=== PATIENT | male | born 1950 | race Caucasian/White ===

== ENCOUNTER 2018-04-12 15:48 | Emergency (ER) | payer MEDICAID ==
[~2018-04-12] VITALS: Ht 160 cm; Wt 57.3 kg
[2018-04-12 16:00] VITALS: BP 211/97
--- NOTE | 2018-04-12 16:10 | NUR ---
PT AMBULATES TO BED 6
--- NOTE | 2018-04-12 16:28 | NUR ---
pt c/o of high blood sugar at home. pt reports accucheck of 541 2 hrs ago; pt states he self administered 15 units of regular insulin. accucheck at time of triage 71. pt denies pain. VSS; PATIENT POSITIONED FOR COMFORT; HOB ELEVATED; BEDRAILS UP X1; BED DOWN. ER MD MADE AWARE OF PT STATUS.
[2018-04-12] MEDS ORDERED: hydrALAZINE 20 MG/ML VIAL IVP ONE (17:25)
[2018-04-12] MEDS ORDERED: ENALAPRILAT 2.5 MG/2 ML VIAL IVP ONE (17:25)
[2018-04-12 17:49] LABS: APPEARANCE,URINE CLEAR (CLEAR); BILIRUBIN,URINE NEGATIVE (NEGATIVE); BLOOD, URINE TRACE-L (NEGATIVE); COLOR,URINE YELLOW (YELLOW); LEUKOCYTE ESTERASE ,URINE NEGATIVE (NEGATIVE); NITRITE, URINE NEGATIVE (NEGATIVE); UGLUCOSE NEGATIVE (NEGATIVE)
[2018-04-12 17:56] LABS: RBC,URINE 0-5 (RARE) /HPF (0-5); WBC,URINE 0-5 (RARE) /HPF (0-5)
[2018-04-12 17:59] LABS: BASOPHILS % (AUTO) 0.4 % (0.0-2.0); EOSINOPHILS % (AUTO) 0.2 % (0.0-4.0); HEMATOCRIT 39.4 % (36-52); HEMOGLOBIN 13.2 g/dL (12.0-18.0); LYMPHOCYTES # (AUTO) 1.1 K/uL (2.0-11.5); LYMPHOCYTES % (AUTO) 13.8 % (20.5-51.1); MEAN CORPUSCULAR HEMOGLOBIN 28 pg (27-31); MEAN CORPUSCULAR HGB CONC 33 g/dL (33-37); MEAN CORPUSCULAR VOLUME 84.8 fL (80-94); MONOCYTES # (AUTO) 0.4 K/uL (0.8-1.0); MONOCYTES % (AUTO) 5.1 % (1.7-9.3); NEUTROPHILS # (AUTO) 6.1 K/uL (1.8-7.7); NEUTROPHILS % (AUTO) 80.5 % (42.2-75.2); PLATELET COUNT (AUTO) 178 K/uL (140-450); RED BLOOD CELL COUNT(AUTO) 4.65 MIL/uL (4.20-6.10); RED CELL DISTRIBUTION WIDTH 13.3 % (11.6-13.7); WHITE BLOOD COUNT (AUTO) 7.6 K/uL (4.8-10.8)
[2018-04-12 18:48] LABS: ANION GAP 12.7 (8-16); CARBON DIOXIDE 29.1 mmol/L (21-32); CREATININE 0.9 mg/dL (0.7-1.3); POTASSIUM 3.8 mmol/L (3.5-5.1)
[2018-04-12 18:51] LABS: ALBUMIN 4.1 g/dL (3.4-5.0); TOTAL BILIRUBIN 0.4 mg/dL (0.0-1.0)
[2018-04-12 18:52] VITALS: BP 158/57
--- NOTE | 2018-04-12 18:53 | NUR ---
Patient discharged with v/s stable. Written and verbal after care instructions given and explained. Patient verbalized understanding. Ambulatory with steady gait. All questions addressed prior to discharge. Advised to follow up with PMD.
== END 2018-04-12 18:53 | disposition home or self-care (01) ==
LOC: MED 15:48
DX: E11.649 Type 2 diabetes mellitus with hypoglycemia without coma (principal); I10 Essential (primary) hypertension
CPT/HCPCS: 36415; 80053; 81001; 85025; 96374; 96375; 99283; J0360; J3490

== ENCOUNTER 2019-04-11 19:04 | Emergency (ER) | payer SELFPAY ==
[~2019-04-11] VITALS: Ht 182.9 cm; Wt 61.2 kg
[2019-04-11 19:14] VITALS: BP 195/76
--- NOTE | 2019-04-11 19:21 | NUR ---
PT AMBULATED TO BED #9
--- NOTE | 2019-04-11 19:44 | NUR ---
68 YEAR OLD PATIENT ACCOMPANIED BY DAUGHTER COMPLAINS OF SHARP LOWER BACK PAIN 8/10 X2DAYS. DAUGHTER STATES FATHER WOULD LIFT HEAVY BOXES AT WORK FREQUENTLY. DENIES DIRECT INJURY OR TRAUMA. SITE WITHOUT INFLAMMATION OR REDNESS. DENIES N/V/D. BP 195/76, DENIES HEADACHE OR BLURRED VISION. PATIENT ALERT AND ORIENTED, BED IN LOWEST POSITION, LOCKED, BED RAIL UPX1. HX - DM2, HTN, BPH, HIGH CHOLESTEROL RX - LISINOPRIL, METFORMIN, SIMVASTATIN, FLOMAX
[2019-04-11] MEDS ORDERED: KETOROLAC 60 MG/2 ML VIAL IM ONE (19:50)
--- NOTE | 2019-04-11 20:06 | NUR ---
PATIENT GIVEN IM TORADOL ORDERED. PATIENT TOLERATED WELL. WILL CHECK BACK.
[2019-04-11 20:59] LABS: APPEARANCE,URINE CLEAR (CLEAR); BILIRUBIN,URINE NEGATIVE (NEGATIVE); BLOOD, URINE 1+ (NEGATIVE); COLOR,URINE YELLOW (YELLOW); LEUKOCYTE ESTERASE ,URINE NEGATIVE (NEGATIVE); NITRITE, URINE NEGATIVE (NEGATIVE); UGLUCOSE NEGATIVE (NEGATIVE)
[2019-04-11 21:01] LABS: WBC,URINE 0-5 /HPF (0-5)
[2019-04-11 21:02] LABS: HYALINE CASTS, URINE 0-10 /LPF (None Seen); YEAST,URINE Few /HPF (None Seen)
--- NOTE | 2019-04-11 21:22 | NUR ---
PT SLEEPING IN BED, AROUSABLE TO NAME, RR EVEN AND UNLABORED. REPORTS 5/10 MID LOWER BACK PAIN, REPORTS IMPROVEMENT IN PAIN RELIEF AFTER TORADOL IM. DR TORRES MADE AWARE. ALL NEEDS MET.
[2019-04-11] MEDS ORDERED: hydrALAZINE 20 MG/ML VIAL IVP ONE (21:25)
[2019-04-11 21:50] LABS: BASOPHILS % (AUTO) 0.3 % (0.0-2.0); EOSINOPHILS # (AUTO) 0.1 K/uL (0-0.4); EOSINOPHILS % (AUTO) 1.7 % (0.0-4.0); HEMATOCRIT 36.2 % (36-52); HEMOGLOBIN 12.1 g/dL (12.0-18.0); LYMPHOCYTES # (AUTO) 1.3 K/uL (2.0-11.5); LYMPHOCYTES % (AUTO) 21.1 % (20.5-51.1); MEAN CORPUSCULAR HEMOGLOBIN 28 pg (27-31); MEAN CORPUSCULAR HGB CONC 33 g/dL (33-37); MONOCYTES # (AUTO) 0.5 K/uL (0.8-1.0); MONOCYTES % (AUTO) 8.3 % (1.7-9.3); NEUTROPHILS # (AUTO) 4.1 K/uL (1.8-7.7); NEUTROPHILS % (AUTO) 68.6 % (42.2-75.2); PLATELET COUNT (AUTO) 133 K/uL (140-450); RED BLOOD CELL COUNT(AUTO) 4.25 MIL/uL (4.20-6.10); RED CELL DISTRIBUTION WIDTH 13.3 % (11.6-13.7)
--- NOTE | 2019-04-11 21:50 | NUR ---
EKG PERFORMED AT BEDSIDE
[2019-04-11 22:01] LABS: ANION GAP 14.1 (8-16); CARBON DIOXIDE 26.9 mmol/L (21-32); CREATININE 0.9 mg/dL (0.7-1.3)
[2019-04-11 22:05] LABS: CHOL/HDL RATIO 3.2 (1-4.5)
[2019-04-11 22:07] LABS: ALBUMIN 3.6 g/dL (3.4-5.0); TOTAL BILIRUBIN 0.3 mg/dL (0.0-1.0)
[2019-04-11 23:25] VITALS: BP 159/67
[2019-04-11] MEDS ORDERED: METF850T PO (23:25)
[2019-04-11] MEDS ORDERED: LISI-420 PO (23:25)
--- NOTE | 2019-04-11 23:25 | NUR ---
Patient discharged with v/s stable. Written and verbal after care instructions given and explained BY DOCTOR BRIAN. Patient alert, oriented and verbalized understanding of instructions. Ambulatory with steady gait. All questions addressed prior to discharge. ID band removed. Patient advised to follow up with PMD. Rx of NAPROSYN 500MG given. Patient educated on indication of medication including possible reaction and side effects. Opportunity to ask questions provided and answered.
== END 2019-04-11 23:25 | disposition home or self-care (01) ==
LOC: MED 19:04
DX: M54.5 Low back pain (principal); E11.9 Type 2 diabetes mellitus without complications; I10 Essential (primary) hypertension; N40.0 Benign prostatic hyperplasia without lower urinary tract symptoms; Z79.84 Long term (current) use of oral hypoglycemic drugs; Z79.899 Other long term (current) drug therapy
CPT/HCPCS: 36415; 71045; 71275; 74174; 80053; 80061; 81001; 82550; 82553; 82948; 83880; 84484; 85025; 96372; 96374; 99284; J0360; J1885; Q0092; Q9967

== ENCOUNTER 2019-08-11 02:50 | Inpatient (IN) | payer MEDICAID ==
[~2019-08-11] VITALS: Ht 167.6 cm; Wt 58.5 kg
[~2019-08-11 02:50] MED LIST: LISI-420 PO; METF850T PO
[2019-08-11 03:00] VITALS: BP 181/70
--- NOTE | 2019-08-11 03:03 | NUR ---
PT TAKEN TO BED 6
--- NOTE | 2019-08-11 03:10 | NUR ---
68 YEAR OLD MALE BROUGHT IN BY FAMILY AND STATED THAT PATIENT IN THE MORNING PATIENT WOKE UP SCREAMING AND WAS ALTERED. PATIENT ALERT AND AWAKE, BREATHING EVEN AND UNLABORED, SKIN WARM AND DRY. GCS 15. PATIENT WOULD REPEAT STATEMENTS OVER INSTEAD OF ASKING QUESTIONS. PATIENT STATES HE HAS DIZZINESS. BLOOD SUGAR 35. ERMD MADE AWARE OF PT STATUS, PT PLACED ON MONITOR. PMH - HTN, DM2 ALLERGIES - NKA
[2019-08-11] MEDS ORDERED: DEXTROSE 10% 1,000 ML IV SCH (03:15)
--- NOTE | 2019-08-11 03:15 | NUR ---
PATIENT GIVEN CRACKERS AND JUICE
--- NOTE | 2019-08-11 03:22 | NUR ---
Dr. Hansen examining patient.
[2019-08-11 03:36] LABS: BASOPHILS % (AUTO) 0.4 % (0.0-2.0); EOSINOPHILS % (AUTO) 0.7 % (0.0-4.0); HEMATOCRIT 36.8 % (36-52); HEMOGLOBIN 12.1 g/dL (12.0-18.0); LYMPHOCYTES # (AUTO) 0.8 K/uL (2.0-11.5); LYMPHOCYTES % (AUTO) 15.1 % (20.5-51.1); MEAN CORPUSCULAR HEMOGLOBIN 28 pg (27-31); MEAN CORPUSCULAR HGB CONC 33 g/dL (33-37); MEAN CORPUSCULAR VOLUME 85.8 fL (80-94); MONOCYTES # (AUTO) 0.3 K/uL (0.8-1.0); MONOCYTES % (AUTO) 5.9 % (1.7-9.3); NEUTROPHILS % (AUTO) 77.9 % (42.2-75.2); PLATELET COUNT (AUTO) 129 K/uL (140-450); RED BLOOD CELL COUNT(AUTO) 4.29 MIL/uL (4.20-6.10); RED CELL DISTRIBUTION WIDTH 13.8 % (11.6-13.7); WHITE BLOOD COUNT (AUTO) 5.1 K/uL (4.8-10.8)
[2019-08-11 03:50] LABS: ALBUMIN 3.8 g/dL (3.4-5.0); ANION GAP 11.5 (8-16); CARBON DIOXIDE 30.4 mmol/L (21-32); CREATININE 0.8 mg/dL (0.6-1.3); POTASSIUM 3.9 mmol/L (3.5-5.1); TOTAL BILIRUBIN 0.2 mg/dL (0.0-1.0)
[2019-08-11] MEDS ORDERED: CEPH250C16 PO (04:24)
[2019-08-11] MEDS ORDERED: DOCU100C16 PO (04:29)
[2019-08-11] MEDS ORDERED: AMLO5TAB PO (04:29)
[2019-08-11] MEDS ORDERED: TAMS0.4C96 PO (04:29)
[2019-08-11] MEDS ORDERED: SIMV20TA1 PO (04:29)
[2019-08-11] MEDS ORDERED: ACET-2619 PO (04:29)
[2019-08-11] MEDS ORDERED: HYDR100T79 PO (04:29)
[2019-08-11] MEDS ORDERED: IBUP200C97 PO (04:29)
--- NOTE | 2019-08-11 04:30 | NUR ---
PATIENT ALERT AND AWAKE, BREATHING EVEN AND UNLABORED
[2019-08-11] MEDS ORDERED: ONDANSETRON 4 MG/2 ML VIAL IVP PRN (04:35)
[2019-08-11] MEDS ORDERED: ACETAMINOPHEN 325 MG TAB PO PRN (04:35)
--- NOTE | 2019-08-11 04:40 | NUR ---
Dr. Guthrie examining patient.
--- NOTE | 2019-08-11 05:20 | NUR ---
FLOOR STATES THEY ARE UNABLE TO ACCEPT PATIENT FOR 20MINS THEY NEED MORE TIME TO PREPARE ROOM
--- NOTE | 2019-08-11 05:37 | NUR ---
Patient's Plan of Care was discussed and reviewed with CONCRETE FLOATER: RADHA GILMORE.
[2019-08-11 05:44] LABS: PROTHROMBIN TIME 10.7 secs (10.8-13.4)
--- NOTE | 2019-08-11 05:45 | NUR ---
REFUSE DRIVER CAME AND STATES THAT SHE WANTED TO TAKE PATIENT FOR HEAD CT SCAN BEFORE TRANSFER TO [facility], REFUSE DRIVER WAS NOTIFIED SHE COULD TAKE PATIENT, REFUSE DRIVER LEFT AND DID NOT COME BACK
--- NOTE | 2019-08-11 05:50 | NUR ---
Patient will be admitted to care of DR MOORE. Admited to TELE. Will go to room 121B. Belongings list completed. Report to ROBEL BAPTISTE.
[2019-08-11 05:57] LABS: CHOL/HDL RATIO 2.7 (1-4.5); FREE T4 (FREE THYROXINE) 0.93 ng/dL (0.76-1.46); MAGNESIUM 1.6 mg/dL (1.8-2.4); PHOSPHORUS 2.9 mg/dL (2.5-4.9); THYROID STIMULATING HORMONE 0.45 uIU/mL (0.34-3.74)
--- NOTE | 2019-08-11 06:00 | NUR ---
PT WAS BROUGHT UP TO FLOOR VIA W/C TO ROOM 121B AND HE AMBULATED TO BED B. REPORT GIVEN BY PERRI, PT IS STABLE CONDITION. HE IS AOX3 , LAST FINGERSTICK IS 116.
--- NOTE | 2019-08-11 06:30 | NUR ---
VITAL SIGNS TAKEN T 98.5 P 61 R 20 B/P 176/71, B/P RETAKEN AND IT WAS 181/78 02 99% ON ROOM AIR. NOTIFIED MD REYNOLDS AND MD SHAW REGARDING PT HTN, MD SHAW APPROVED B/P MEDS TO GIVEN EARLY AND RODOLFO TO FOLLOW UP WITH PRN.
[2019-08-11] MEDS ORDERED: LISINOPRIL 20 MG TAB ONE (06:45)
[2019-08-11] MEDS: LISINOPRIL 20 MG TAB PO SCH ×2 (06:52→20:05)
[2019-08-11 07:00] VITALS: BP 176/71
[2019-08-11] MEDS: NACL 0.9% 1,000 ML IV SCH (07:05)
[2019-08-11] MEDS ORDERED: hydrALAZINE 20 MG/ML VIAL IVP PRN (07:05)
--- NOTE | 2019-08-11 07:20 | NUR ---
RECEIVED PT. FROM NUCLEAR REACTOR TECHNICIAN NURSEROBEL. PT. IS AWAKE AND ALERT. AAOX4. IV ON THE RIGHT FOREARM 20G WITH NS RUNNING AT 10ML/HR. PT. IS AMBULATORY. PT. IS ON ROOM AIR WITH O2 STAT AT 99%. NO SIGNS OF DISTRESS NOTED AND PT. VERBALIZES NO PAIN. FALL PRECAUTIONS INITIATED. CALL LIGHT WITHIN REACH. WILL CONTINUE TO MONITOR.
[2019-08-11 08:00] VITALS: BP 176/71
--- NOTE | 2019-08-11 08:47 | NUR ---
PATIENT HAS BEEN SCREENED AND CATEGORIZED MODERATE NUTRITION RISK. PATIENT WILL BE SEEN WITHIN 3-5 DAYS OF ADMISSION. 08/13/19 08/15/[address]
[2019-08-11] MEDS ORDERED: INSU100S22 SUBQ (08:48)
[2019-08-11] MEDS ORDERED: DEXTROSE 50% 50 ML SYR IVP PRN (09:00)
[2019-08-11] MEDS ORDERED: amLODIPine 5 MG TAB PO SCH (09:00)
[2019-08-11] MEDS ORDERED: NON-FORMULARY ITEM (Hydralazine HCl (Hydralazine Hydrochloride) 25 MG) PO SCH (09:00)
[2019-08-11] MEDS ORDERED: INSULIN LISPRO SLIDING SCALE 100 UNITS/ML VIAL SUBQ PRN (09:00)
--- NOTE | 2019-08-11 10:33 | NUR ---
MORNING MEDICATIONS GIVEN. BP 159/66 & HR 60. NO DISTRESS NOTED. WILL CONTINUE TO MONITOR.
[2019-08-11] MEDS: hydrALAZINE 25 MG TAB PO SCH ×3 (10:36→17:26)
[2019-08-11] MEDS: DOCUSATE SODIUM 100 MG GELCAP PO SCH ×2 (10:36→20:05)
--- NOTE | 2019-08-11 11:30 | NUR ---
BLOOD GLUCOSE TAKEN WITH A VALUE OF 123. NO INSULIN COVERAGE NEEDED. WILL CONTINUE TO MONITOR.
[2019-08-11] MEDS: BLOOD GLUCOSE MONITORING 1 DEV DEV FS SCH ×3 (11:47→20:07)
--- NOTE | 2019-08-11 13:28 | NUR ---
DC PLANNIN YRS OLD MALE PATIENT WAS ADMITTED FROM HOME WITH A DX OF HYPOGLYCEMIA BS 38 . PT HAS A HX OF DM AND HTN . ADMINISTERED D50 IVP GIVEN, BS . CT HEAD SHOWED SMALL RT INFERIOR FRONTAL PROBABLE SUBDURAL HEMATOMA AND CAROTID US AND CXRAY (-) CONSULTED WITH NEUROLOGIST DR JOE EVALUATED PT ORDERED MRI OF THE BRAIN. CM TO FOLLOW Addendum: 08/11/19 at 1512 by Beth Gordon CM DC PLANNING CALLED [facility] [phone] MRI DPT ,SPOKE WITH ALIREZA AND FAXED THE MRI REQUEST. AIDEE LAY RECEIVED ALL THE PAPERWORK AND SCHEDULE IT FOR TOMORROW 08/12/19 AT 8:30 AM ARRANGED TRANSPORT WITH [facility] SPOKE WITH LYDIA, VOUCHER SIGNED BY CAMACHO DUBOIS , VESSEL MANAGER TIME 7:30 AM. IF MRI IS DONE WITH IN 30 MIN [facility] WILL WAIT 30 MIN . AND RETURN PT BACK TO [facility]. NOTIFIED ISAÍAS BAPTISTE. Addendum: 08/12/[address] RECEIVED AN ORDER TO DC HOME WITH [facility] FOR PT AND NURSING SAFETY GERRI. ATTEMPTED TO MEET WITH THE PATIENT AT THE BEDSIDE, PATIENT IS OUT OF THE UNIT FOR AN MRI. WILL CONTACT PATIENT'S SISTER SHAVON SHEETS AT [phone]. SPOKE TO CARMENZA (PATIENT'S NIECE) SHE STATED HER MOTHER DOES NOT SPEAK ARABIC AND SHE CAN TRANSLATE. DISCUSSED DC PLAN AND IS IN AGREEMENT. CONTACTED [facility] AT [phone], ABLE TO SPEAK TO LAURI. SHE STATED TO GO AHEAD AND FAX REFERRAL TO [phone]. REFERRAL SENT. LAURI MADE AWARE THAT THE PATIENT'S INSURANCE IS MEDICAL RESTRICTED. SHE STATED THEY WILL REVIEW IT AND IF THEY ARE ABLE TO ACCEPT, WILL GIVE ME A CALL BACK. Addendum: 08/12/[address] CM RECEIVED AN ORDER FOR OUT PATIENT NEURO SURGERY APPOINTMENT. CONTACTED [facility] AT [phone], ABLE TO SPEAK TO ALLA (STEEL DETAILER) TO INQUIRE ABOUT OUT PATIENT NEURO SURGERY APPOINTMENT CLINIC'S PHONE NUMBER. SHE STATED TO CALL [phone], ABLE TO SPEAK TO STANLEY. SHE STATED TO GO AHEAD AND FAX REFERRAL TO [phone] AND ATTENTION IT TO NEURO SURGERY DEPARTMENT. SHE ALSO PROVIDED ME WITH THE REFERRAL (NEURO SURGERY DEPT) DEPT'S PHONE NUMBER [phone]. CLINICALS AND ORDER FAXED TO THE PROVIDED NUMBER. WILL FOLLOW UP. Addendum: 08/12/[address] PER LAURI VALDEZ OF [facility], THEY ARE NOT ABLE TO ACCEPT THE PATIENT DUE TO MEDICAL RESTRICTED. DR. REYNOLDS MADE AWARE. Addendum: 08/12/[address] CONTACTED [facility] AT [phone], ABLE TO SPEAK TO VERO. SHE STATED SHE IS NOT ABLE TO TELL ME IF THEY HAVE RECEIVED THE REFERRAL SINCE THEY ARE WORKING ON AUG 02 REFERRALS THEY RECEIVED. SHE ALSO STATED TO CALL BACK IN 2-3 DAYS TO FOLLOW, MAY AT THAT TIME THEY ARE CAUGHT UP ALREADY. CONTA[facility]ED [facility] AT [phone], ABLE TO SPEAK TO OPAL. SHE PROVIDED ME THE FAX NUMBER [phone] TO SEND REFERRAL. REFERRAL SENT TO THE PROVIDED NUMBER.
--- NOTE | 2019-08-11 13:30 | NUR ---
MRI OF THE HEAD SCREENING QUESTIONNAIRE DONE WITH SR. [employer] MOBILE MANAGER [place], [place] [id number]. PT. VERBALIZES UNDERSTANDING AND ANSWERED SCREENING QUESTIONS WITHOUT CONFUSION. WILL CONTINUE TO MONITOR.
--- NOTE | 2019-08-11 14:30 | NUR ---
RECEIVED MRI PROCEDURE INFORMATION ABOUT TRANSFER TO [facility] FROM [facility], EMILY. WILL ENDORSE TO NEXT SHIFT NURSE.
--- NOTE | 2019-08-11 16:30 | NUR ---
REASSESSED V/S. BP DECREASED TO 140/85 AND HR 74. WILL CONTINUE TO MONITOR.
[2019-08-11] MEDS ORDERED: metFORMIN 850 MG TAB PO SCH (17:00)
--- NOTE | 2019-08-11 17:00 | NUR ---
BLOOD SUGAR DONE WITH VALUE OF 119. NO INSULIN COVERAGE NEEDED. WILL CONTINUE TO MONITOR.
--- NOTE | 2019-08-11 17:10 | NUR ---
AFTERNOON MEDICATIONS GIVEN. BP 187/96 HR 61. SCHEDULED HYDRALAZINE PO GIVEN. WILL REASSESS BP AFTER 1 HOUR.
--- NOTE | 2019-08-11 19:00 | NUR ---
ENDORSED PT. TO OPERATOR NURSE FOR CONTINUITY OF CARE.
--- NOTE | 2019-08-11 19:30 | NUR ---
RECEIVED BEDSIDE REPORT FROM DAY RN. PT IS AAOX4 IS GUINEAN SPEAKING ONLY. RESPIRATIONS ARE EQUAL AND UNLABORED ON ROOM AIR. LUNG SOUNDS ARE CLEAR. SKIN IS INTACT. PT IS AMBULATORY PER RN. IV ON R HAND 20G IVF PER ORDERS. C/C ALOC DX HYPOGLYCEMIA. PT IS ROCAEL TO HAVE MRI TOMORROW AT [place] AT 0730 AM. UA IS PENDING EXPLAINED TO PT HE VERBALIZED UNDERSTANDING. PT IS EATING WELL. POC DISCUSSED WITH PT. SAFETY MEASURES ARE IN PLACE. CALL LIGHT IS WITHIN REACH. WILL CONTINUE TO MONITOR.
[2019-08-11 19:56] VITALS: BP 152/65
--- NOTE | 2019-08-11 20:07 | NUR ---
BG 195 DX:HYPOGLYCEMIA PT JUST ATE DINNER WILL HOLD INSULIN AND RECHECK TOMORROW AM. ROCAEL MEDICATION GIVEN PER ORDER. VSS. ATTEMPT TO CALL SISTER PER REQUEST LEFT VOICEMAIL WILL TRY AGAIN LATER. CALL LIGHT IS WITHIN REACH. WILL CONTINUE TO MONITOR.
[2019-08-11] MEDS ORDERED: TAMSULOSIN 0.4 MG CAP PO SCH (21:00)
[2019-08-11] MEDS ORDERED: SIMVASTATIN 20 MG TAB PO SCH (21:00)
[2019-08-11] MEDS ORDERED: MAG SULF 2000 MG/WATER PREMIX 50 ML IV SCH (21:20)
--- NOTE | 2019-08-11 21:41 | NUR ---
MAG RIDER IS NOW INFUSING PER ORDERS FOR MG LEVEL OF 1.6. ALL NEEDS MET AT THIS TIME. CALL LIGHT IS WITHIN REACH. WILL CONTINUE TO MONITOR.
[2019-08-12] VITALS: BP 155/61
--- NOTE | 2019-08-12 00:12 | NUR ---
VITAL SIGNS ARE WITHIN NORMAL LIMITS. NO S/S OF DISTRESS. SAFETY MEASURES ARE IN PLACE. CALL LIGHT IS WITHIN REACH.
--- NOTE | 2019-08-12 02:20 | NUR ---
MADE ROUNDS. PT IS SLEEPING COMFORTABLY IN BED WITH EYES CLOSED. CHEST RISE AND FALL NOTED. NO S/S OF DISTRESS.WILL CONTINUE TO MONITOR.
[2019-08-12] MEDS: NACL 0.9% 1,000 ML IV SCH (03:31)
--- NOTE | 2019-08-12 04:00 | NUR ---
HOURLY ROUND. PT IS SLEEPING COMFORTABLY IN BED WITH EYES CLOSED. CHEST RISE AND FALL NOTED. CALL LIGHT IS WITHIN REACH.
[2019-08-12 05:58] LABS: BASOPHILS % (AUTO) 0.4 % (0.0-2.0); EOSINOPHILS # (AUTO) 0.1 K/uL (0-0.4); EOSINOPHILS % (AUTO) 1.5 % (0.0-4.0); HEMATOCRIT 35.6 % (36-52); LYMPHOCYTES # (AUTO) 1.5 K/uL (2.0-11.5); LYMPHOCYTES % (AUTO) 28.6 % (20.5-51.1); MEAN CORPUSCULAR HEMOGLOBIN 29 pg (27-31); MEAN CORPUSCULAR HGB CONC 34 g/dL (33-37); MEAN CORPUSCULAR VOLUME 85.5 fL (80-94); MONOCYTES # (AUTO) 0.4 K/uL (0.8-1.0); MONOCYTES % (AUTO) 7.4 % (1.7-9.3); NEUTROPHILS # (AUTO) 3.3 K/uL (1.8-7.7); NEUTROPHILS % (AUTO) 62.1 % (42.2-75.2); PLATELET COUNT (AUTO) 137 K/uL (140-450); RED BLOOD CELL COUNT(AUTO) 4.17 MIL/uL (4.20-6.10); RED CELL DISTRIBUTION WIDTH 13.6 % (11.6-13.7); WHITE BLOOD COUNT (AUTO) 5.3 K/uL (4.8-10.8)
[2019-08-12 06:09] LABS: APPEARANCE,URINE CLEAR (CLEAR); BILIRUBIN,URINE NEGATIVE (NEGATIVE); BLOOD, URINE NEGATIVE (NEGATIVE); COLOR,URINE YELLOW (YELLOW); LEUKOCYTE ESTERASE ,URINE NEGATIVE (NEGATIVE); NITRITE, URINE NEGATIVE (NEGATIVE); UGLUCOSE NEGATIVE (NEGATIVE)
[2019-08-12] MEDS: BLOOD GLUCOSE MONITORING 1 DEV DEV FS SCH ×2 (06:11→11:16)
[2019-08-12 06:21] LABS: RBC,URINE 0-5 /HPF (0-5); WBC,URINE 0-5 /HPF (0-5)
[2019-08-12 06:30] LABS: PHOSPHORUS 2.5 mg/dL (2.5-4.9)
[2019-08-12 06:32] LABS: CARBON DIOXIDE 31.1 mmol/L (21-32); CREATININE 0.8 mg/dL (0.6-1.3); POTASSIUM 4.1 mmol/L (3.5-5.1)
--- NOTE | 2019-08-12 06:38 | NUR ---
BLOOD SUGAR 97 GAVE PT APPLE JUICE AND REMINDED PT HE IS GOING TO [facility] FOR HEAD MRI ROCAEL 0830 TRANSPORTATION WILL PICK PT UP AT 0730. PT VERBALIZED UNDERSTANDING. PT IS STABLE. WILL ENDORSE TO DAY RN.
--- NOTE | 2019-08-12 07:10 | NUR ---
RECEIVED PATIENT FROM PROCESS EQUIPMENT OPERATOR NURSE FOR CONTINUITY OF CARE. PATIENT IS AWAKE. NO SIGNS OF DISTRESS NOTED. RESPIRATIONS EVEN AND UNLABORED, ROOM AIR. VISIBLE CHEST RISE. MED-SURG. ABDOMEN FLAT, SOFT, NONTENDER. SKIN WARM, DRY, AND INTACT. IV IN THE RIGHT HAND G20 RUNNING NS AT 10 ML/HR TKO. IV FLUSHING WELL. PATIENT IS SCHEDULED TO GO TO [place] FOR MRI OF THE HEAD OF CT WITHOUT CONTRAST. PATIENT IS AWARE. FALL PRECAUTIONS. STANDARD ISOLATION. BED IN LOW POSITION. CALL LIGHT IS WITHIN REACH. WILL CONTINUE TO MONITOR.
--- NOTE | 2019-08-12 07:40 | NUR ---
GIVEN REPORT TO CINDY WELSH. PATIENT WILL BE GOING TO [place] FOR MRI OF THE HEAD WITHOUT CONTRAST.
--- NOTE | 2019-08-12 07:55 | NUR ---
PATIENT IS OFF UNIT TO [facility] FOR MRI OF THE HEAD WITHOUT CONTRAST
[2019-08-12 07:58] VITALS: BP 135/69
[2019-08-12 08:00] VITALS: BP 178/73
[2019-08-12] MEDS ORDERED: amLODIPine 5 MG TAB PO SCH (09:00)
[2019-08-12] MEDS: DOCUSATE SODIUM 100 MG GELCAP PO SCH (09:57)
[2019-08-12] MEDS: hydrALAZINE 25 MG TAB PO SCH ×2 (09:59→13:09)
[2019-08-12] MEDS: LISINOPRIL 20 MG TAB PO SCH (10:12)
--- NOTE | 2019-08-12 10:16 | NUR ---
PT IS ALERT, AWAKE AND JUST FINISHED USING THE RESTROOM. GAIT IS STEADY AND STABLE WITH NO COMPLAINTS OF PAIN. MEDICATIONS ADMINISTERED PER ORDER AND TOLERATED WELL. MEDICATION ADMINISTRATION CONSULTED WITH DR. REYNOLDS REGARDING PTS LOW HR. DR. REYNOLDS STATED TO HOLD ALL INSULIN MEDICATION AND EXPLAINED TO PT THAT AN APPOINTMENT WILL BE MADE FOR HIM WITH HIS PRIMARY CARE PHYSICIAN.
--- NOTE | 2019-08-12 11:16 | NUR ---
BLOOD GLUCOSE CHECK: 163. WILL GIVE INSULIN COVERAGE
--- NOTE | 2019-08-12 11:32 | NUR ---
PER DR. REYNOLDS WAIT FOR AN HOUR BECAUSE SHE WILL TRY TO MAKE AN APPOINTMENT FOR A NEUROSURGERY. PATIENT IS AWARE.
--- NOTE | 2019-08-12 11:50 | NUR ---
GIVEN 2 UNITS OF INSULIN SUBQ IN THE LEFT UPPER ARM. PATIENT TOLERATED WELL. WILL CONTINUE TO MONITOR
[2019-08-12] MEDS ORDERED: METF500T PO (11:59)
--- NOTE | 2019-08-12 12:20 | NUR ---
PATIENT IS EATING LUNCH AT THIS TIME. WILL RECHECK BLOOD SUGAR. WILL CALL SHAVON TO STEAM OVEN OPERATOR PATIENT
[2019-08-12] MEDS ORDERED: PNEUMOCOCCAL VACCINE 23 MCG/0.5 ML VIAL IMVAC SCH (12:30)
[2019-08-12] MEDS ORDERED: INFLUENZA VACCINE QUAD 0.5 ML SYR IMVAC PRN (12:30)
--- NOTE | 2019-08-12 12:51 | NUR ---
CALLED SHAVON, SISTER OF THE PATIENT. SHE WILL MINER PICK THE PATIENT IN AN HOUR.
--- NOTE | 2019-08-12 13:10 | NUR ---
GIVEN FLU AND PNA VACCINES ON EACH ARMS. PATIENT TOLERATED WELL. GIVEN HYDRALAZINE. BP IS 159/79, HR 68, O2SAT 1002%, RESPIRATIONS 19, EVEN AND UNLABORED, TEMP 98.0 ORAL Addendum: 08/12/19 at 1324 by Princess Citlali Amezquita RN O2 SAT 100%
[2019-08-12 13:13] VITALS: BP 155/79
--- NOTE | 2019-08-12 14:12 | NUR ---
DISCHARGE INSTRUCTIONS GIVEN IN ROMANSH. PT VERBALIZED UNDERSTANDING WITH NO FURTHER QUESTIONS ASKED. DISCONTINUED IV WITH CATHETER IN PLACE AND ID BANDS REMOVED.
--- NOTE | 2019-08-12 14:15 | NUR ---
DISCHARGE PT BY WHEELCHAIR. PT DENIES ANY PAIN AND SOB. HYPOGLYCEMIA HAS BEEN RESOLVED, PT IS IN STABLE CONDITION WITH DISCHARGE PAPERWORK IN HAND.
== END 2019-08-12 14:15 | disposition home or self-care (01) | DRG 420 ==
LOC: MED 02:50 → MTU 04:35
PROVIDERS: ADMIT General Practice; ATTEND General Practice
PROC: 3E02340 Introduction of Influenza Vaccine into Muscle, Percutaneous Approach (ICD-10-PCS; principal; 2019-08-12)
PROC: 3E0234Z Introduction of Serum, Toxoid and Vaccine into Muscle, Percutaneous Approach (ICD-10-PCS; 2019-08-12)
DX: E11.649 Type 2 diabetes mellitus with hypoglycemia without coma (principal); G93.41 Metabolic encephalopathy; I10 Essential (primary) hypertension; N40.0 Benign prostatic hyperplasia without lower urinary tract symptoms; E78.5 Hyperlipidemia, unspecified; Z23 Encounter for immunization
CPT/HCPCS: 36415; 70450; 71045; 80048; 80053; 81001; 82150; 82948; 83036; 83605; 83690; 83735; 83880; 84100; 84439; 84443; 84484; 85025; 85610; 85730; 87081; 90732; 93005; 93880; 96360; 96361; 97110; 97112; 97116; 97161-GP; 97530; 99285; J1815; J3475; J7030; Q0092

== ENCOUNTER 2020-07-24 09:11 | Emergency (ER) | payer MEDICAID ==
[~2020-07-24] VITALS: Ht 172.7 cm; Wt 65.3 kg
[~2020-07-24 09:11] MED LIST changes: +ACET-2619 PO; +AMLO5TAB PO; +DOCU100C16 PO; +HYDR100T79 PO; -LISI-420 PO; +LISI-487 PO; +METF500T PO; -METF850T PO; +SIMV20TA1 PO; +TAMS0.4C96 PO
[2020-07-24 09:14] VITALS: BP 219/97
[2020-07-24 09:52] LABS: ANION GAP 9.6 (8-16); CARBON DIOXIDE 32.6 mmol/L (21-32); POTASSIUM 4.2 mmol/L (3.5-5.1)
[2020-07-24 10:20] VITALS: BP 179/89
== END 2020-07-24 10:20 | disposition home or self-care (01) ==
LOC: MED 09:11
DX: E11.65 Type 2 diabetes mellitus with hyperglycemia (principal); I10 Essential (primary) hypertension; Z79.899 Other long term (current) drug therapy; Z79.84 Long term (current) use of oral hypoglycemic drugs
CPT/HCPCS: 36415; 80048; 99283

== ENCOUNTER 2020-08-10 09:17 | Emergency (ER) | payer MEDICAID ==
[~2020-08-10] VITALS: Ht 157.5 cm; Wt 56.7 kg
[2020-08-10 09:29] VITALS: BP 164/66
[2020-08-10 10:01] VITALS: BP 164/66
== END 2020-08-10 10:01 | disposition home or self-care (01) ==
LOC: MED 09:17
DX: L91.8 Other hypertrophic disorders of the skin (principal); L29.9 Pruritus, unspecified; E11.9 Type 2 diabetes mellitus without complications; I10 Essential (primary) hypertension; Z79.84 Long term (current) use of oral hypoglycemic drugs; Z79.899 Other long term (current) drug therapy
CPT/HCPCS: 99281

== ENCOUNTER 2020-09-20 07:30 | Emergency (ER) | payer MEDICAID ==
[~2020-09-20] VITALS: Ht 167.6 cm; Wt 59.9 kg
[2020-09-20 07:37] VITALS: BP 147/64
--- NOTE | 2020-09-20 07:43 | NUR ---
PATIENT AMBULATED TO BED 04
--- NOTE | 2020-09-20 07:48 | NUR ---
PT C/O LOWER ABD PAIN WITH NAUSEA AND DIARRHEA X 1 YEAR MEDHX: DM, HTN, HLD, PROSTATE
--- NOTE | 2020-09-20 07:52 | NUR ---
DR RICO AT BEDSIDE EXAMINING PATIENT
[2020-09-20 08:20] LABS: BASOPHILS % (AUTO) 0.5 % (0.0-2.0); EOSINOPHILS # (AUTO) 0.1 K/uL (0-0.4); EOSINOPHILS % (AUTO) 1.2 % (0.0-4.0); HEMATOCRIT 32.7 % (36-52); HEMOGLOBIN 10.8 g/dL (12.0-18.0); LYMPHOCYTES % (AUTO) 17.2 % (20.5-51.1); MEAN CORPUSCULAR HEMOGLOBIN 28 pg (27-31); MEAN CORPUSCULAR HGB CONC 33 g/dL (33-37); MONOCYTES # (AUTO) 0.4 K/uL (0.8-1.0); MONOCYTES % (AUTO) 6.7 % (1.7-9.3); NEUTROPHILS # (AUTO) 4.2 K/uL (1.8-7.7); NEUTROPHILS % (AUTO) 74.4 % (42.2-75.2); PLATELET COUNT (AUTO) 150 K/uL (140-450); RED BLOOD CELL COUNT(AUTO) 3.94 MIL/uL (4.20-6.10); RED CELL DISTRIBUTION WIDTH 13.9 % (11.6-13.7); WHITE BLOOD COUNT (AUTO) 5.6 K/uL (4.8-10.8)
[2020-09-20 08:35] LABS: APPEARANCE,URINE CLEAR (CLEAR); BILIRUBIN,URINE NEGATIVE (NEGATIVE); BLOOD, URINE NEGATIVE (NEGATIVE); COLOR,URINE YELLOW (YELLOW); LEUKOCYTE ESTERASE ,URINE NEGATIVE (NEGATIVE); NITRITE, URINE NEGATIVE (NEGATIVE); PH,URINE 5.5 (5.0-9.0); UGLUCOSE NEGATIVE (NEGATIVE)
[2020-09-20 08:41] LABS: ALBUMIN 3.7 g/dL (3.4-5.0); ANION GAP 12.5 (8-16); CARBON DIOXIDE 26.6 mmol/L (21-32); CREATININE 1.2 mg/dL (0.6-1.3); POTASSIUM 4.1 mmol/L (3.5-5.1); TOTAL BILIRUBIN 0.4 mg/dL (0.0-1.0)
[2020-09-20 08:53] LABS: RBC,URINE 0-5 /HPF (0-5); WBC,URINE 0-5 /HPF (0-5)
[2020-09-20] MEDS ORDERED: ALUMINUM HYD/MAG/SIMETHICONE 30 ML UDC PO SCH (10:50)
[2020-09-20] MEDS ORDERED: POLYETHYLENE GLYCOL 17 GM/PKT PO SCH (10:50)
--- NOTE | 2020-09-20 11:03 | NUR ---
Dr. Giron is evaluating the patient at bedside along with combat control manager.
--- NOTE | 2020-09-20 11:05 | NUR ---
Female Inventory Control Supervisor accompanied patient for Rectal Exam.
[2020-09-20] MEDS ORDERED: MIRABULK PO (11:10)
== END 2020-09-20 11:20 | disposition home or self-care (01) ==
LOC: MED 07:30
DX: K59.00 Constipation, unspecified (principal); E11.9 Type 2 diabetes mellitus without complications; I10 Essential (primary) hypertension; Z79.899 Other long term (current) drug therapy; Z79.84 Long term (current) use of oral hypoglycemic drugs
CPT/HCPCS: 36415; 74177; 80053; 81001; 83690; 85025; 87086; 99285; Q9967

== ENCOUNTER 2020-11-11 21:57 | Emergency (ER) | payer MEDICAID ==
[~2020-11-11] VITALS: Ht 167.6 cm; Wt 74.4 kg
[~2020-11-11 21:57] MED LIST changes: +MIRABULK PO
[2020-11-11 22:07] VITALS: BP 164/72
--- NOTE | 2020-11-11 22:10 | NUR ---
TO LOBBY A/W BED AMBULATORY
--- NOTE | 2020-11-11 23:40 | NUR ---
PT BIB SELF FOR C/O 10/10 LEFT EAR PAIN STATING AN INSECT FLEW IN HIS EAR 3 HOURS AGO. PT DENIES FEVER, CHILLS, N/V/D, CP OR SOB. NO NOTED REDNESS OR DRAINAGE UPON VISUAL OF LEFT EAR.
--- NOTE | 2020-11-11 23:58 | NUR ---
ERMD AT BEDSIDE PERFORMING EAR IRRIGATION. REMOVED INSECT FROM LEFT EAR. PT REPORTS IMMEDIATE DECREASE IN PAIN.
[2020-11-12] MEDS ORDERED: NEOMYCIN/POLYMYXIN/HC OT SOL. 10 ML BTL OT ONE
== END 2020-11-12 00:31 | disposition home or self-care (01) ==
LOC: MED 21:57
DX: T16.2XXA Foreign body in left ear, initial encounter (principal); E11.9 Type 2 diabetes mellitus without complications; I10 Essential (primary) hypertension; Z79.899 Other long term (current) drug therapy; Z79.84 Long term (current) use of oral hypoglycemic drugs; Z98.890 Other specified postprocedural states; X58.XXXA Exposure to other specified factors, initial encounter; Y93.89 Activity, other specified; Y92.89 Other specified places as the place of occurrence of the external cause; Y99.8 Other external cause status
CPT/HCPCS: 99283

== ENCOUNTER 2021-01-05 08:01 | Emergency (ER) | payer MEDICAID ==
[~2021-01-05] VITALS: Ht 170.2 cm; Wt 58.1 kg
[~2021-01-05 08:01] MED LIST changes: +DOCU-464 PO; -DOCU100C16 PO
[2021-01-05 08:15] VITALS: BP 127/55
--- NOTE | 2021-01-05 08:54 | NUR ---
70/M presents to ED with c/o skin lesions in right side of his groin area x3 years. Pateint states he was previously told to get it checked stating he has been unable to see his primary doctor. Patient denies pain at this time, denies chest pain, sob, fever, chills, nausea or vomitig. No bleeding or discharge noted at site.
[2021-01-05 08:58] VITALS: BP 127/55
== END 2021-01-05 08:59 | disposition home or self-care (01) ==
LOC: MED 08:01
DX: L98.9 Disorder of the skin and subcutaneous tissue, unspecified (principal); E11.9 Type 2 diabetes mellitus without complications; I10 Essential (primary) hypertension; Z79.84 Long term (current) use of oral hypoglycemic drugs; Z79.899 Other long term (current) drug therapy; Z98.890 Other specified postprocedural states
CPT/HCPCS: 99281

== ENCOUNTER 2022-08-20 16:59 | Emergency (ER) | payer MEDICAID ==
[~2022-08-20] VITALS: Ht 152.4 cm; Wt 59.9 kg
[~2022-08-20 16:59] MED LIST changes: +METF-346 PO; -METF500T PO; +SIMV-372 PO; -SIMV20TA1 PO
[2022-08-20 17:32] VITALS: BP 189/75
[2022-08-20 20:02] LABS: BASOPHILS % (AUTO) 0.4 % (0.0-2.0); EOSINOPHILS # (AUTO) 0.1 K/uL (0-0.4); EOSINOPHILS % (AUTO) 1.4 % (0.0-4.0); HEMATOCRIT 29.6 % (36-52); HEMOGLOBIN 9.5 g/dL (12.0-18.0); LYMPHOCYTES # (AUTO) 1.2 K/uL (2.0-11.5); LYMPHOCYTES % (AUTO) 17.4 % (20.5-51.1); MEAN CORPUSCULAR HEMOGLOBIN 24 pg (27-31); MEAN CORPUSCULAR HGB CONC 32 g/dL (33-37); MEAN CORPUSCULAR VOLUME 75.2 fL (80-94); MONOCYTES # (AUTO) 0.7 K/uL (0.8-1.0); MONOCYTES % (AUTO) 9.9 % (1.7-9.3); NEUTROPHILS # (AUTO) 4.8 K/uL (1.8-7.7); NEUTROPHILS % (AUTO) 70.9 % (42.2-75.2); PLATELET COUNT (AUTO) 224 K/uL (140-450); RED BLOOD CELL COUNT(AUTO) 3.94 MIL/uL (4.20-6.10); RED CELL DISTRIBUTION WIDTH 15.5 % (11.6-13.7); WHITE BLOOD COUNT (AUTO) 6.8 K/uL (4.8-10.8)
[2022-08-20 20:21] LABS: ALBUMIN 3.3 g/dL (3.4-5.0); ANION GAP 13.6 (8-16); ASPARTATE AMINOTRANSFERASE 18 U/L (15-37); CARBON DIOXIDE 25.2 mmol/L (21-32); CHLORIDE 107 mmol/L (98-107); CREATININE 1.2 mg/dL (0.6-1.3); GLUCOSE 243 mg/dL (74-106); POTASSIUM 4.8 mmol/L (3.5-5.1); SODIUM SERUM 141 mmol/L (136-145); TOTAL BILIRUBIN 0.2 mg/dL (0.0-1.0); UREA NITROGEN, BLOOD 33 mg/dL (7-18)
[2022-08-20] MEDS ORDERED: BACITRACIN OINT 500 UNITS/GM PKT TP ONE (21:35)
[2022-08-20] MEDS ORDERED: ACET-10509 PO (21:35)
[2022-08-20 23:06] VITALS: BP 189/75
== END 2022-08-20 23:06 | disposition home or self-care (01) ==
LOC: MED 16:59
DX: S80.02XA Contusion of left knee, initial encounter (principal); D64.9 Anemia, unspecified; S00.81XA Abrasion of other part of head, initial encounter; E11.9 Type 2 diabetes mellitus without complications; I10 Essential (primary) hypertension; I25.2 Old myocardial infarction; Z79.899 Other long term (current) drug therapy; W01.198A Fall on same level from slipping, tripping and stumbling with subsequent striking against other object, initial encounter; Y92.89 Other specified places as the place of occurrence of the external cause; Y93.89 Activity, other specified; Y99.8 Other external cause status
CPT/HCPCS: 36415; 70150; 70450; 71045; 80053; 82550; 84484; 85025; 93005; 99285

== ENCOUNTER 2022-09-03 16:18 | Emergency (ER) | payer MEDICAID ==
[~2022-09-03] VITALS: Ht 167.6 cm; Wt 61.5 kg
[~2022-09-03 16:18] MED LIST changes: +ACET-10509 PO
[2022-09-03 16:29] VITALS: BP 162/69
--- NOTE | 2022-09-03 16:42 | NUR ---
PT AMBULATED TO BED 7
--- NOTE | 2022-09-03 16:53 | NUR ---
lab at bedside
--- NOTE | 2022-09-03 17:00 | NUR ---
71YO MALE PT BIB SELF C/O L KNEE PAIN B1ITIVL. REPORTS FALLING FORWARD AFTER EPISODE OF DIZZINESS +HEADINJURY+BLOODTHINNERS-LOC. STATES FREQUENT PREVIOUS EPISODES D/T ANEMIA. ABRASION NOTED IN L KNEE, NO VISIBLE DEFORMITY. DENIES N/V/D, FEVER,CHILLS, CHEST PAIN OR SOB. PT AAOX4, AMB W/ STEADY GAIT. HOB POSITIONED PER COMFORT HX: ANEMIA, DIABETES, HTN, SKIN CA NKA
--- NOTE | 2022-09-03 17:13 | NUR ---
MD OWENS AT BEDSIDE FOR EVALUATION
[2022-09-03 17:15] LABS: BASOPHILS % (AUTO) 0.3 % (0.0-2.0); EOSINOPHILS # (AUTO) 0.1 K/uL (0-0.4); EOSINOPHILS % (AUTO) 1.1 % (0.0-4.0); HEMATOCRIT 24.4 % (36-52); HEMOGLOBIN 7.9 g/dL (12.0-18.0); LYMPHOCYTES # (AUTO) 0.7 K/uL (2.0-11.5); LYMPHOCYTES % (AUTO) 13.7 % (20.5-51.1); MEAN CORPUSCULAR HEMOGLOBIN 24 pg (27-31); MEAN CORPUSCULAR HGB CONC 32 g/dL (33-37); MEAN CORPUSCULAR VOLUME 75.4 fL (80-94); MONOCYTES # (AUTO) 0.5 K/uL (0.8-1.0); NEUTROPHILS % (AUTO) 74.9 % (42.2-75.2); PLATELET COUNT (AUTO) 201 K/uL (140-450); RED BLOOD CELL COUNT(AUTO) 3.24 MIL/uL (4.20-6.10); RED CELL DISTRIBUTION WIDTH 15.4 % (11.6-13.7); WHITE BLOOD COUNT (AUTO) 5.4 K/uL (4.8-10.8)
[2022-09-03 17:24] LABS: ANION GAP 12.5 (8-16); CARBON DIOXIDE 25.9 mmol/L (21-32); CHLORIDE 103 mmol/L (98-107); CREATININE 1.4 mg/dL (0.6-1.3); POTASSIUM 4.4 mmol/L (3.5-5.1); SODIUM SERUM 137 mmol/L (136-145); UREA NITROGEN, BLOOD 36 mg/dL (7-18)
[2022-09-03 17:29] LABS: GLUCOSE 439 mg/dL (74-106)
--- NOTE | 2022-09-03 17:31 | NUR ---
xray at bedside
[2022-09-03] MEDS ORDERED: BACITRACIN OINT 500 UNITS/GM PKT TP ONE (18:10)
[2022-09-03] MEDS ORDERED: IBUP-2213 PO (18:23)
[2022-09-03] MEDS ORDERED: ACET-8905 PO (18:23)
[2022-09-03 18:55] VITALS: BP 140/66
--- NOTE | 2022-09-03 18:55 | NUR ---
Patient discharged with v/s stable. Written and verbal after care instructions FOR ACUTE KNEE PAIN AND ANEMIA given and explained. Patient alert, oriented and verbalized understanding of instructions. Ambulatory with steady gait. All questions addressed prior to discharge. ID band removed. Patient advised to follow up with PMD. Rx of HYDROCODONE AND IBUPROFEN given. Opportunity to ask questions provided and answered.
== END 2022-09-03 18:55 | disposition home or self-care (01) ==
LOC: MED 16:18
DX: M25.562 Pain in left knee (principal); D64.9 Anemia, unspecified; I10 Essential (primary) hypertension; E11.9 Type 2 diabetes mellitus without complications; Z79.4 Long term (current) use of insulin; Z79.899 Other long term (current) drug therapy
CPT/HCPCS: 36415; 73562; 80048; 85025; 99284